=== PATIENT | male | born 2000 | race Caucasian/White ===

== ENCOUNTER 2019-08-29 20:33 | Emergency (ER) | payer OTHER ==
[~2019-08-29] VITALS: Ht 177.8 cm; Wt 69.9 kg
== END 2019-08-29 23:11 | disposition home or self-care (01) ==
LOC: ER 20:33
DX: S61.022A Laceration with foreign body of left thumb without damage to nail, initial encounter (principal); W25.XXXA Contact with sharp glass, initial encounter; Y93.89 Activity, other specified; Y92.018 Other place in single-family (private) house as the place of occurrence of the external cause; Y99.8 Other external cause status

== ENCOUNTER 2020-03-17 15:06 | Emergency (ER) | payer OTHER ==
[~2020-03-17] VITALS: Ht 175.3 cm; Wt 67.1 kg
[2020-03-17] MEDS ORDERED: INTESTINEX680 M1 PO (22:44)
[2020-03-17] MEDS ORDERED: PEPCID AC20 MG PO (22:44)
== END 2020-03-17 22:41 | disposition home or self-care (01) ==
LOC: ER 15:06 → EMR PED 15:06 → ER 15:20 → EMR PED 22:41
DX: R10.13 Epigastric pain (principal); R10.31 Right lower quadrant pain; R19.7 Diarrhea, unspecified

== ENCOUNTER 2022-01-17 16:23 | Emergency (ER) | payer OTHER ==
[~2022-01-17] VITALS: Ht 177.8 cm; Wt 71.7 kg
[~2022-01-17 16:23] MED LIST: INTESTINEX680 M1 PO; PEPCID AC20 MG PO
[2022-01-17] MEDS ORDERED: ZITHROMAX500 MG PO (21:25)
== END 2022-01-17 21:28 | disposition home or self-care (01) ==
LOC: ER 16:23
DX: J03.90 Acute tonsillitis, unspecified (principal)

== ENCOUNTER → 2024-02-22 | Emergency (ER) | payer OTHER ==
[~2024-02-22] VITALS: Ht 167.6 cm; Wt 65.8 kg
[~2024-02-22] MED LIST changes: +ZITHROMAX500 MG PO
== END | disposition left against medical advice (07) ==
LOC: ER 01:16
DX: Z53.21 Procedure and treatment not carried out due to patient leaving prior to being seen by health care provider (principal)